=== PATIENT | female | born 1995 | race Caucasian/White ===

== ENCOUNTER 2020-05-24 18:59 | Observation (INO) | payer BC, OTHER ==
[2020-05-24 21:04] LABS: Bilirubin Negative (Negative); Blood, Urine 3+ (Negative); Clarity Clear (Clear); Glucose, Urine (Dipstick) Normal (Negative); Ketone, Urine Negative (Negative); Leukocyte Negative Leu/uL (Negative); Nitrite Negative (Negative); Protein, Urine (Dipstick) Negative (Neg-Trace); RBC/HPF 0-3 HPF (0-3); Specific Gravity, Urine 1.015 (1.002-1.036); Squamous Epithelial 0-3 HPF (0-3); Urobilinogen Normal mg/dL (Less than 2); pH, Urine 6.5 (5.0-9.0)
[2020-05-24 21:11] LABS: Bacteria/HPF Rare-Few HPF (None Seen)
[2020-05-24] MEDS ORDERED: Ondansetron PF 4 MG/2 ML Vial ONE (21:30)
[2020-05-24] MEDS ORDERED: Morphine 2 MG/ML VIAL ONE (21:30)
[2020-05-24 21:38] LABS: #Basophils 0.1 thou/uL (0.0-0.2); #Eosinphils 0.1 thou/uL (0.0-0.7); #Lymphocytes 2.9 thou/uL (1.20-3.40); #Monocytes 0.7 thou/uL (0.11-0.59); %Basophils 0.8 % (0.0-1.0); %Eosinophils 1.1 % (0.0-10.0); %Lymphocytes 29.9 % (21.0-51.0); %Monocytes 7.1 % (0.0-10.0); Hemoglobin 10.2 g/dL (12.0-16.0); Mean Corpuscular Hemoglobin 29.6 pg (27.0-31.0); Mean Platelet Volume 7.8 fL (7.4-10.4); Platelet Count 279 thou/uL (130-400); RBC Distribution Width 12.5 % (11.5-14.5); Red Blood Cell (RBC) Count 3.45 mill/uL (4.20-5.40); White Blood Cell (WBC) Count 9.8 thou/uL (4.8-10.8)
[2020-05-24 22:02] LABS: ALT (SGPT) 15 U/L (8-55); AST (SGOT) 13 U/L (5-34); Albumin 3.5 g/dL (3.5-5.0); Alkaline Phosphatase 48 U/L (40-110); Anion Gap 12 mmol/L (10-20); BUN (Urea Nitrogen) 8 mg/dL (7.0-18.7); Bilirubin, Total Less than 0.2 mg/dL (0.2-1.2); Calc. Creatinine Clearance 0 mL/min (70-130); Calcium 8.6 mg/dL (7.8-10.44); Carbon Dioxide 22 mmol/L (22-29); Chloride 106 mmol/L (98-107); Estimated GFR-MDRD Greater than 90; Globulin 2.7 g/dL (2.4-3.5); Glucose 79 mg/dL (70-105); Potassium 3.7 mmol/L (3.5-5.1); Protein, Total 6.2 g/dL (6.0-8.3); Sodium 136 mmol/L (136-145)
[2020-05-24] MEDS ORDERED: Morphine 4 MG/ML VIAL ONE (22:51)
--- NOTE | 2020-05-24 23:24 | ULT ---
Transvaginal obstetrical pelvic ultrasound INDICATION: History of vaginal bleeding and with right lower quadrant abdominal pain TECHNIQUE: Grayscale, M-mode Doppler and Doppler images were obtained of the abdomen and pelvis to ev aluate the patient's known . COMPARISON: None. FINDINGS: Number of gestations: Single. Presentation: Cephalic. Placental location: Right posterior; there is a predominantly sonolucent masslike abnormality seen wi thin the central aspect of the placenta measuring 2.4 x 4.4 cm. Previa: There is a mixed echogenicity, predominantly hypoechoic masslike prominence seen along the i nferior margin of the placenta, near the cervical os measuring 6.4 x 4.2 x 6.5 cm suspicious for an area of periplacental hemorrhage, possibly related to abruption. Cervical length: 5.3 cm without evidence of funneling VARINDER: Subjectively appears normal cm. heart rate: 140 bpm. Biparietal diameter: 4.02cm, 18 weeks and 1 day, 28th percentile. Head circumference: 15.00 cm, 18 weeks and 1 day, 15th percentile Abdominal circumference: 13.15 cm, 18 weeks and 5 days, 45th percentile Femoral length: 2.94cm, 19 weeks and 0 days, 57th percentile Estimated weight: 256 g +/- 38g (0 lbs. 9 oz. +/- 1 ounces), 48th percentile SURVEY: head: Normal appearing. Cerebellum: Normal appearing. Cisterna magna: Normal appearing. Lateral ventricles: Normal appearing. 4 chamber heart: Normal appearing. Stomach: Normal appearing Kidneys: Normal appearing Cord insertion: Normal appearing. Bladder: Normal appearing. Spine: Normal appearing. Lips and nose: Normal appearing. Extremities: Normal appearing. Three-vessel CORD: Normal appearing. The average gestational age by ultrasound is 18 weeks and 4 dayswith estimated due date of October 21, 2020. The estimated dates by clinical data is 18 weeks and 5 dayswith estimated due date of October 20, 2020. IMPRESSION: 1. Single live intrauterine gestation with size and dates as above. 2. Findings suspicious for a marginal placental abruption along the inferior aspect of the right and posterior placenta. There is a 6.4 x 4.2 x 6.5 cm suspected periplacental hemorrhage seen in the region of the lower uterine segment. 3. Sonolucent masslike prominence within the central aspect of the placenta is nonspecific and may re flect a chronic placental abruption or possibly a venous marte. 4. Findings called to AMADOU Wright at 11:15 PM on May 24, 2020.
[2020-05-25] MEDS ORDERED: hydrALAZINE 20 MG/ML VIAL SLOW IVP PRN (00:10)
[2020-05-25] MEDS ORDERED: Promethazine HCl 25 MG/ML VIAL IM PRN (00:10)
[2020-05-25] MEDS ORDERED: Butorphanol Tartrate 1 MG/ML VIAL SLOW IVP PRN (00:10)
--- NOTE | 2020-05-25 00:14 | PDOC.LDHP ---
Labor and Delivery H&P Chief complaint: other (bleeding) HPI: 24 yo WF presents c/o spotting and cramping. Current gestational age (weeks): 18 Due date: 10/20/20 Dating criteria: last menstrual period Grav: 4 Para: 1 OB History Details: at 26 weeks, baby shortly after. molar at 13 weeks tx with D&C Current complications: other (Sees Dr. Landa bleeding throughout this ) Abnormal US findings: Yes (subchorionic bleed) Past Medical History: none Current medications: pre-shaina vitamins, other (Aide 150 mg q week) Previous surgical history: dilation and curettage Social history: none - Physical Exam Vital signs reviewed and normal: yes General: resting Heart: RRR Lungs: CTAB Abdomen: gravid - Assessment 18.5 week IUP h/o 1st and 2nd trimester bleeding USG tonight c/w subchorionic bleed vs abruptio - Plan Plan: observation in L&D, other (D/w Dr. Guillaume who agrees with OBS)
[2020-05-25] MEDS ORDERED: HYDROcodone/Acetaminophen 10/325 mg Tablet ONE (01:03)
[2020-05-25 02:36] VITALS: BMI 32.3
[2020-05-25] MEDS: Meperidine HCl/PF 25 MG/ML VIAL IM/IV PRN ×4 (02:57→14:45)
[2020-05-25] MEDS: Lactated Ringer's 1,000 ML IV SCH ×3 (02:57→18:28)
[2020-05-25] MEDS: Ondansetron PF 4 MG/2 ML Vial IVP PRN ×3 (03:37→15:57)
[2020-05-25 13:10] LABS: SARS-CoV-2 MS2 Positive; SARS-CoV-2 N Gene Negative; SARS-CoV-2 S Gene Negative; SARS-CoV-2 by NAA Not Detected (NotDetected); SARS-CoV-2 orf1ab Negative
[2020-05-25 15:00] LABS: Bacteria/HPF None Seen HPF (None Seen); Bilirubin Negative (Negative); Blood, Urine 1+ (Negative); Clarity Clear (Clear); Glucose, Urine (Dipstick) Normal (Negative); Ketone, Urine Negative (Negative); Leukocyte Negative Leu/uL (Negative); Nitrite Negative (Negative); Protein, Urine (Dipstick) Negative (Neg-Trace); RBC/HPF 0-3 HPF (0-3); Specific Gravity, Urine 1.007 (1.002-1.036); Squamous Epithelial 0-3 HPF (0-3); Urobilinogen Normal mg/dL (Less than 2); WBC/HPF 0-3 HPF (0-3); pH, Urine 7.5 (5.0-9.0)
[2020-05-25 15:04] LABS: Urine Culture Reflex No No
[2020-05-25] MEDS: Butorphanol Tartrate 1 MG/ML VIAL SLOW IVP PRN ×2 (17:27→20:27)
--- NOTE | 2020-05-25 18:51 | ULT ---
Bilateral renal ultrasound CLINICAL INDICATION: Right flank pain in a patient with 18 week gestation. Evaluate for obstruction. COMPARISON: None. FINDINGS: Right kidney: There is no evidence of a renal mass, renal calculus, or hydronephrosis seen. The right kidney measures cm x 4.3 cm. Left kidney: There is no evidence of a renal mass, renal calculus, or hydronephrosis. The left kidney measures 10.3 cm x 4.7 cm. Urinary bladder: Within normal limits for degree of distention. Ureteral jets are seen bilaterally on color flow evaluation. There is incomplete imaging of an intrauterine gestation. IMPRESSION: No evidence of hydronephrosis.
[2020-05-25] MEDS ORDERED: FLU VACC QS2020-21(6MOS UP)/PF 60 MCG/0.5 ML SYRINGE IM ONE (21:00)
[2020-05-26] MEDS: Lactated Ringer's 1,000 ML IV SCH (02:41)
[2020-05-26] MEDS: Butorphanol Tartrate 1 MG/ML VIAL SLOW IVP PRN ×3 (02:48→07:58)
[2020-05-26 08:07] VITALS: BP 108/57; TEMP 98.4
== END 2020-05-26 08:50 | disposition home or self-care (01) ==
LOC: ERS 18:59 → 3SW 05-25 00:13
PROVIDERS: ADMIT Obstetrics & Gynecology; ATTEND Obstetrics & Gynecology
DX: O46.92 Antepartum hemorrhage, unspecified, second trimester (principal); O99.891 Other specified diseases and conditions complicating pregnancy; R10.9 Unspecified abdominal pain; O09.A2 Supervision of pregnancy with history of molar pregnancy, second trimester; O09.292 Supervision of pregnancy with other poor reproductive or obstetric history, second trimester; Z79.899 Other long term (current) drug therapy; Z3A.18 18 weeks gestation of pregnancy; Z88.6 Allergy status to analgesic agent; Z20.828 Contact with and (suspected) exposure to other viral communicable diseases
CPT/HCPCS: 36415; 76770; 76856; 80053; 81001; 81003; 81015; 85025; 86900; 86901; 87086; 87635; 96374; 96375; 96376; G0378; J0595; J2175; J2270; J2405; J2550; U0003

== ENCOUNTER 2020-07-24 21:06 | Day surgery (SDC) | payer BC, OTHER ==
[2020-07-24] MEDS ORDERED: hydrALAZINE 20 MG/ML VIAL SLOW IVP PRN (21:09)
--- NOTE | 2020-07-24 21:12 | PDOC.FPROB ---
FMR OB H&P: HPI - History of Present Illness Chief Complaint: Flank Pain Indentification: 24yo at 29.0wks by LMP History of Present Illness: 24yo at 29.0wks by LMP presents for constant left sided flank pain that is 10/10, started today. Reports similar pain on right side 2 months ago and reports being diagnosed with kidney infection or stone but not treated with Abx. Currently denies VB, has had VB throughout that resolved 4wks ago. Denies dysuria, hematuria, discharge, odor, frequency, fever, chills, n/v. Denies CTX, LOF. Endorses FM. She was recently diagnosed with skin infection and completed 10 day course of Keflex last night. She took Tylenol 1000mg at home with no relief. Primary Care Physician: Dr Landa FMR OB H&P: Current - Care : 4 Para: 1111 Gestational age: 29.0wks Due date: 10/20/20 Dating Criteria: LMP Course/Complications: Subchorionic bleed Taking Aide for hx of delivery at 26wks - OB Labs Blood type: O RH: positive - Additional Ultrasound Additional: Subchorionic bleed FMR OB H&P: History - Past Medical History PMH: Denies - OB History OB History: at 26 weeks, baby shortly after. Molar at 13 weeks tx with D&C 1 at term 7 yrs ago - Surgical History Sx History: D&C - Social History Social History: Denies tobacco, alcohol and drug use - Family History Family History: Noncontributory FMR OB H&P: Medications - Current Home Medications: Medication Instructions Recorded Confirmed Type Hydroxyprogesterone Caproat/Pf 150 mg IM Q7D 07/24/20 07/24/20 History [Aide 250 mg/ml Vial] 148/Iron/Folate 6/Dha 1 tab PO QAM 07/24/20 07/24/20 History [Tendera-Ob Softgel] Allergies/Adverse Reactions: Allergies Allergy/AdvReac Type Severity Reaction Status Date / Time aspirin Allergy Mild Hives Verified 07/24/20 21:44 FMR OB H&P: ROS - Review of Systems General: denies: fever/chills, fatigue Eyes: denies: vision changes, double vision, scotomas, floaters ENT: denies: nasal congestion, rhinorrhea, sore throat Cardiovascular: denies: chest pain, edema Respiratory: denies: cough, congestion, shortness of breath Gastrointestinal: reports: other (flank pain). denies: abdominal pain, nausea, vomiting Genitourinary (Female): reports: vaginal bleeding (resolved 4wks ago). denies: dysuria, hematuria, polyuria, hesitancy, vaginal discharge, contractions Musculoskeletal: denies: swelling Neurologic: denies: weakness, headache Integumentary: denies: rash, lesions FMR OB H&P: Vital Signs - Maternal Vital signs: BP 126/83 HR 75 RR 16 Temp 98.6 - Heart Tones Baseline: 150 Variability: moderate FMR OB H&P: Physical Exam - Physical Exam General: NAD, awake, alert and oriented HEENT: normocephalic and atraumatic, MMM, conjunctiva clear, grossly normal hearing Neck: supple, trachea midline Heart: RRR, no murmurs/rubs/gallops, no edema General: CTAB, no respiratory distress Abdomen: soft, gravid, other (Left CVA tenderness) Musculoskeletal: normal gait and station, no misalignment/asymmetry, no atrophy Neurological: no focal deficit Skin: no rash, good tugor Lymphatic: no unusual bruising or bleeding, no purpura Psychiatric: intact recent and remote memory, good judgement and insight, normal mood and affect FMR OB H&P: A/P Disposition: 24yo at 29.0wks by LMP Flank pain DDx: Kidney stone vs Pyelo - Well appearing, VSS. - Ordered straight cath UA - Morphine for pain Discussion: Date/Time: 07/24/202109 This H&P was discussed with Dr. Alcaraz who agrees with the above documentation and plan. Addendum - Attending - Attending Attestation Date/Time: 07/25/20 0026 I personally evaluated the patient and discussed the management with Dr. Bishop. I agree with the History, Examination, Assessment and Plan documented above with any addition or exceptions noted below. UA completely normal. Renal ultrasound with no abnormal findings. No e/o PTL, pyelonephritis, kidney stone, or other acute process. status reassuring with reactive NST. Pain not improved with morphine or flexeril, but reports it didn't help last time either. Requesting Stadol. Given 1mg stadol before d/c home. Counseled to return if pain worsens, bleeding, or other concerns. Keep appointment scheduled for Monday.
[2020-07-24] MEDS ORDERED: Butorphanol Tartrate 1 MG/ML VIAL SLOW IVP SCH (21:30)
[2020-07-24 21:43] VITALS: BMI 33.3
[2020-07-24] MEDS ORDERED: Morphine 4 MG/ML VIAL SLOW IVP SCH (21:45)
[2020-07-24] MEDS ORDERED: Lactated Ringer's 1,000 ML IV SCH (22:00)
[2020-07-24 22:33] LABS: Bacteria/HPF None Seen HPF (None Seen); Bilirubin Negative (Negative); Blood, Urine Negative (Negative); Clarity Clear (Clear); Glucose, Urine (Dipstick) Normal (Negative); Ketone, Urine Negative (Negative); Leukocyte Negative Leu/uL (Negative); Nitrite Negative (Negative); Protein, Urine (Dipstick) Negative (Neg-Trace); RBC/HPF None Seen HPF (0-3); Squamous Epithelial None Seen HPF (0-3); Urobilinogen Normal mg/dL (Less than 2); WBC/HPF 0-3 HPF (0-3)
[2020-07-24 22:35] LABS: Urine Culture Reflex No No
[2020-07-24] MEDS ORDERED: Cyclobenzaprine 10 MG TAB PO SCH (23:00)
[2020-07-25] MEDS ORDERED: Butorphanol Tartrate 1 MG/ML VIAL ONE (00:01)
[2020-07-25] MEDS ORDERED: Butorphanol Tartrate 1 MG/ML VIAL SLOW IVP PRN (00:02)
--- NOTE | 2020-07-25 00:12 | ULT ---
Bilateral renal ultrasound CLINICAL INDICATION: Left flank pain in a patient with 29 week gestation. COMPARISON: 05/25/2020 FINDINGS: Right kidney: There is no evidence of a renal mass, renal calculus, or hydronephrosis seen. The right kidney measures 9.8 cm x 5.3 cm. Left kidney: There is no evidence of a renal mass, renal calculus, or hydronephrosis. The left kidney measures 11.2 cm x 5.3 cm. Urinary bladder: Distended and has a normal sonographic appearance. Ureteral jets are seen bilaterall y on color flow evaluation. There is partial visualization of an intrauterine gestation. There has been no interval change compared to prior renal sonogram. IMPRESSION: No evidence of hydronephrosis.
[2020-07-25] MEDS ORDERED: FLU VACC QS2020-21(6MOS UP)/PF 60 MCG/0.5 ML SYRINGE IM ONE (09:00)
== END 2020-07-25 00:20 | disposition home or self-care (01) ==
LOC: L&D/OP 21:06
PROVIDERS: ATTEND Obstetrics & Gynecology
DX: O99.891 Other specified diseases and conditions complicating pregnancy (principal); R10.9 Unspecified abdominal pain; O46.8X3 Other antepartum hemorrhage, third trimester; O09.213 Supervision of pregnancy with history of pre-term labor, third trimester; O09.A3 Supervision of pregnancy with history of molar pregnancy, third trimester; Z3A.29 29 weeks gestation of pregnancy; Z88.6 Allergy status to analgesic agent
CPT/HCPCS: 76770; 81001; 96360; 96361; 96375; 99283; J0595; J2270